=== PATIENT | male | born 1970 | race African-American/Black ===

== ENCOUNTER 2021-01-18 10:14 | Emergency (ER) | payer OTHER ==
[~2021-01-18] VITALS: Ht 182.9 cm; Wt 163.3 kg
[2021-01-18] MEDS ORDERED: PROMETH-CODEIN 65 ML PO (15:06)
[2021-01-18] MEDS ORDERED: SYMBICORT 16010.2 GM IH (15:06)
[2021-01-18] MEDS ORDERED: TESSALON PERLE100 M1 PO (15:06)
[2021-01-18] MEDS ORDERED: FLONASE ALLERG9.9 ML NASAL (15:06)
== END 2021-01-18 15:15 ==
LOC: ER 10:14
DX: J06.9 Acute upper respiratory infection, unspecified (principal); R05.9 Cough, unspecified; Z20.822 Contact with and (suspected) exposure to COVID-19